=== PATIENT | female | born 1980 | race African-American/Black ===

== ENCOUNTER 2021-10-03 22:00 | Emergency (ER) | payer MEDICARE, MEDICAID ==
[2021-10-03 22:33] LABS: #Basophils 0.1 thou/uL (0.0-0.2); #Eosinphils 0.2 thou/uL (0.0-0.7); #Lymphocytes 2.9 thou/uL (1.20-3.40); #Monocytes 0.5 thou/uL (0.11-0.59); #Neutrophils 7.8 thou/uL (1.40-6.50); %Basophils 0.6 % (0.0-1.0); %Eosinophils 1.7 % (0.0-10.0); %Lymphocytes 24.9 % (21.0-51.0); %Monocytes 4.6 % (0.0-10.0); %Neutrophils 68.1 % (42.0-75.0); Mean Corpuscular HGB CONC 30.7 g/dL (32.0-36.0); Mean Corpuscular Hemoglobin 30.2 pg (27.0-31.0); Mean Corpuscular Volume 98.4 fL (78.0-98.0); Mean Platelet Volume 7.8 fL (7.4-10.4); Platelet Count 415 thou/uL (130-400); RBC Distribution Width 12.3 % (11.5-14.5); Red Blood Cell (RBC) Count 3.98 mill/uL (4.20-5.40); White Blood Cell (WBC) Count 11.5 thou/uL (4.8-10.8)
[2021-10-03 22:46] LABS: ALT (SGPT) 16 U/L (8-55); AST (SGOT) 16 U/L (5-34); Albumin 4.3 g/dL (3.5-5.0); Alkaline Phosphatase 97 U/L (40-110); Anion Gap 20 mmol/L (10-20); BUN (Urea Nitrogen) 33 mg/dL (7.0-18.7); Bilirubin, Total 0.1 mg/dL (0.2-1.2); Calc. Creatinine Clearance 0 mL/min (70-130); Calcium 9.6 mg/dL (7.8-10.44); Carbon Dioxide 19 mmol/L (22-29); Chloride 106 mmol/L (98-107); Glucose 226 mg/dL (70-105); Potassium 3.5 mmol/L (3.5-5.1); Protein, Total 8.3 g/dL (6.0-8.3); Sodium 141 mmol/L (136-145)
[2021-10-03] MEDS ORDERED: Morphine 4 MG/ML VIAL ONE (23:02)
[2021-10-03] MEDS ORDERED: Ondansetron PF 4 MG/2 ML Vial ONE (23:02)
[2021-10-03 23:07] LABS: CKMB 0.9 ng/mL (0-6.6)
[2021-10-04] MEDS ORDERED: Morphine 4 MG/ML VIAL ONE (01:02)
== END 2021-10-04 02:27 | disposition short-term general hospital (02) ==
LOC: NAV ERS 22:00
DX: M79.605 Pain in left leg (principal); R07.89 Other chest pain; I25.10 Atherosclerotic heart disease of native coronary artery without angina pectoris; Z86.718 Personal history of other venous thrombosis and embolism; I21.3 ST elevation (STEMI) myocardial infarction of unspecified site; E11.9 Type 2 diabetes mellitus without complications; I10 Essential (primary) hypertension; E11.40 Type 2 diabetes mellitus with diabetic neuropathy, unspecified; Z79.899 Other long term (current) drug therapy
CPT/HCPCS: 71045; 80053; 82553; 84484; 85025; 85379; 93005; 94760; 96374; 96375; 96376; J2270; J2405

== ENCOUNTER 2022-11-22 02:26 | Emergency (ER) | payer OTHER ==
[2022-11-22] MEDS ORDERED: Ondansetron PF 4 MG/2 ML Vial ONE (02:43)
[2022-11-22] MEDS ORDERED: Sodium Chloride 0.9% 1,000 ML ONE (02:43)
[2022-11-22 02:48] LABS: #Basophils 0.1 thou/uL (0.0-0.2); #Lymphocytes 2.4 thou/uL (1.20-3.40); #Monocytes 0.4 thou/uL (0.11-0.59); #Neutrophils 13.1 thou/uL (1.40-6.50); %Basophils 0.6 % (0.0-1.0); %Eosinophils 0.2 % (0.0-10.0); %Lymphocytes 14.7 % (21.0-51.0); %Monocytes 2.4 % (0.0-10.0); %Neutrophils 82.1 % (42.0-75.0); Hemoglobin 12.9 g/dL (12.0-16.0); Mean Corpuscular HGB CONC 31.6 g/dL (32.0-36.0); Mean Corpuscular Hemoglobin 28.7 pg (27.0-31.0); Mean Corpuscular Volume 90.9 fl (78.0-98.0); Platelet Count 471 10x3/uL (130-400); RBC Distribution Width 13.5 % (11.5-14.5); Red Blood Cell (RBC) Count 4.47 mill/uL (4.20-5.40)
[2022-11-22 02:53] LABS: Pregs Control Bar Appear? YES (CONTROL BAR)
[2022-11-22 02:57] LABS: BHCG - Serum Negative (NEGATIVE)
[2022-11-22] MEDS ORDERED: cloNIDine 0.1mg/24 Hour PATCH TD SCH (03:00)
[2022-11-22 03:06] LABS: ALT (SGPT) 215 U/L (8-55); AST (SGOT) 244 U/L (5-34); Albumin 4.4 g/dL (3.5-5.0); Alkaline Phosphatase 356 U/L (40-110); Anion Gap 22 mmol/L (10-20); BUN (Urea Nitrogen) 11 mg/dL (7.0-18.7); Bilirubin, Total 0.6 mg/dL (0.2-1.2); Calc. Creatinine Clearance 0 mL/min (70-130); Calcium 10.4 mg/dL (7.8-10.44); Carbon Dioxide 22 mmol/L (22-29); Chloride 101 mmol/L (98-107); Estimated GFR 52; Globulin 4.7 g/dL (2.4-3.5); Glucose 287 mg/dL (70-105); Lipase 10 U/L (8-78); Magnesium 1.4 mg/dL (1.6-2.6); Potassium 3.5 mmol/L (3.5-5.1); Protein, Total 9.1 g/dL (6.0-8.3); Sodium 141 mmol/L (136-145)
[2022-11-22] MEDS ORDERED: Ondansetron ODT 4 MG TAB ONE (03:06)
[2022-11-22 03:42] LABS: CKMB 1.6 ng/mL (0-6.6)
[2022-11-22] MEDS ORDERED: Metoclopramide HCl 10 MG/2 ML VIAL ONE ×2 (05:13→05:49)
[2022-11-22] MEDS ORDERED: Magnesium 2 GM/50 ML BAG (IN WATER) ONE (05:56)
[2022-11-22] MEDS ORDERED: hydrALAZINE 10 MG TAB ONE (06:32)
[2022-11-22] MEDS ORDERED: hydrALAZINE 20 MG/ML VIAL ONE (06:33)
[2022-11-22 06:42] LABS: Troponin I 0.073 ng/mL (< 0.028)
[2022-11-22] MEDS ORDERED: niCARdipine 20MG In NaCl 20 MG/200 ML BAG ONE (07:12)
[2022-11-22] MEDS ORDERED: HYDROmorphone 0.5 MG/0.5 ML SYRINGE ONE (07:23)
== END 2022-11-22 07:37 | disposition short-term general hospital (02) ==
LOC: NAV ERS 02:26
DX: R11.10 Vomiting, unspecified (principal); N17.9 Acute kidney failure, unspecified; I10 Essential (primary) hypertension; E83.42 Hypomagnesemia; D72.829 Elevated white blood cell count, unspecified; E86.9 Volume depletion, unspecified; E11.9 Type 2 diabetes mellitus without complications; Z91.148 Patient's other noncompliance with medication regimen for other reason
CPT/HCPCS: 36556; 80053; 82553; 83605; 83690; 83735; 84484; 84703; 85025; 93005; 96365; 96372; 96375; J0360; J1170; J2405; J2765; J3475; J7050; Q0162

== ENCOUNTER 2024-01-09 11:02 | Emergency (ER) | payer MEDICARE, OTHER ==
[2024-01-09] MEDS ORDERED: Promethazine HCl 25 MG/ML VIAL ONE ×2 (11:35→13:04)
[2024-01-09] MEDS ORDERED: Labetalol HCl 100 MG/20 ML VIAL ONE (11:41)
[2024-01-09] MEDS ORDERED: Ondansetron PF 4 MG/2 ML Vial ONE (11:42)
[2024-01-09 11:44] LABS: #Basophils 0.1 thou/uL (0.0-0.2); #Lymphocytes 2.2 thou/uL (1.20-3.40); #Monocytes 0.4 thou/uL (0.11-0.59); #Neutrophils 5.6 thou/uL (1.40-6.50); %Eosinophils 0.4 % (0.0-10.0); %Lymphocytes 26.7 % (21.0-51.0); %Monocytes 4.3 % (0.0-10.0); %Neutrophils 67.7 % (42.0-75.0); Hematocrit 44.9 % (36.0-47.0); Hemoglobin 13.6 g/dL (12.0-16.0); Mean Corpuscular HGB CONC 30.4 g/dL (32.0-36.0); Mean Corpuscular Hemoglobin 28.2 pg (27.0-31.0); Mean Corpuscular Volume 92.6 fl (78.0-98.0); Mean Platelet Volume 6.3 fL (7.4-10.4); Platelet Count 464 10x3/uL (130-400); RBC Distribution Width 13.9 % (11.5-14.5); Red Blood Cell (RBC) Count 4.84 mill/uL (4.20-5.40); White Blood Cell (WBC) Count 8.2 10x3/uL (4.8-10.8)
[2024-01-09 12:03] LABS: Troponin I 0.061 ng/mL (< 0.028)
[2024-01-09 12:04] LABS: ALT (SGPT) 85 U/L (8-55); AST (SGOT) 100 U/L (5-34); Albumin 4.4 g/dL (3.5-5.0); Alkaline Phosphatase 201 U/L (40-110); Anion Gap 23 mmol/L (10-20); BUN (Urea Nitrogen) 16 mg/dL (7.0-18.7); Bilirubin, Total 0.5 mg/dL (0.2-1.2); Calc. Creatinine Clearance 0 mL/min (70-130); Calcium 10.9 mg/dL (7.8-10.44); Carbon Dioxide 21 mmol/L (22-29); Chloride 98 mmol/L (98-107); Estimated GFR 51; Globulin 4.9 g/dL (2.4-3.5); Glucose 256 mg/dL (70-105); Potassium 3.7 mmol/L (3.5-5.1); Protein, Total 9.3 g/dL (6.0-8.3); Sodium 138 mmol/L (136-145)
[2024-01-09] MEDS ORDERED: Sodium Chloride 0.9% 1,000 ML ONE (12:20)
[2024-01-09] MEDS ORDERED: Labetalol HCl 100 MG TAB ONE (13:32)
[2024-01-09 13:35] LABS: Bilirubin Negative (Negative); Blood, Urine Negative (Negative); Clarity Clear (Clear); Glucose, Urine (Dipstick) 100 mg/dL (Negative); Ketone, Urine Trace mg/dL (Negative); Leukocyte Small (Negative); Nitrite Negative (Negative); Protein, Urine (Dipstick) 100 mg/dL (Neg-Trace)
[2024-01-09 13:44] LABS: Troponin I 0.062 ng/mL (< 0.028)
[2024-01-09 13:49] LABS: Amphetamine Not Detected (NotDetected); Barbiturates Screen Not Detected (NotDetected); Benzodiazepine Screen Not Detected (NotDetected); Cocaine Metabolite Screen Not Detected (NotDetected); Methadone Not Detected (NotDetected); Methamphetamine Not Detected (NotDetected); Opiate Screen Not Detected (NotDetected); Oxycodone Screen Not Detected (NotDetected); Phencyclidine (PCP) Not Detected (NotDetected); THC/Cannabinoid Screen Not Detected (NotDetected); Tricyclic Screen Not Detected (NotDetected)
[2024-01-09 14:31] LABS: Bacteria/HPF 2+ HPF (None Seen); CAUTI Indications for Culture Dysuria,urgency,freq; RBC/HPF 0-3 HPF (0-3); Renal Epithelial 0-3 HPF (None Seen)
[2024-01-09 14:32] LABS: Epithelial Cast 0-3 LPF (None Seen)
[2024-01-09 14:34] LABS: Urine Culture Reflex No No
== END 2024-01-09 14:12 | disposition home or self-care (01) ==
LOC: NAV ERS 11:02
DX: I10 Essential (primary) hypertension (principal); R11.2 Nausea with vomiting, unspecified; E11.40 Type 2 diabetes mellitus with diabetic neuropathy, unspecified
CPT/HCPCS: 80053; 80306; 81001; 83690; 83880; 84484; 85025; 93005; 96361; 96374; 96375; 96376; J2405; J2550; J7030